=== PATIENT | female | born 1940 | race Caucasian/White ===

== ENCOUNTER 2019-12-02 11:25 | Emergency (ER) | payer MEDICARE, MEDICAID, SELFPAY ==
[2019-12-02 11:27] VITALS: BP 168/75; PULSE 82; RESP 16; TEMP 36.8; O2SAT 98; BMI 25.6
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
[2019-12-02 11:48] LABS: Basophils # 0.1 10^3/uL (0.0-0.1); Basophils % 0.6 %; Eosinophils # 0.4 10^3/uL (0.0-0.8); Eosinophils % 2.7 %; Hematocrit 34.4 % (37.0-47.0); Hemoglobin 10.9 g/dL (11.5-15.3); Lymphocytes # 2.7 10^3/uL (0.8-4.8); Lymphocytes % 20.7 %; Mean Corpuscular HGB Conc 31.7 g/dL (30.0-36.0); Mean Corpuscular Hemoglobin 29.3 pg (28.0-34.0); Mean Corpuscular Volume 92.5 fL (81-99); Mean Platelet Volume 10.6 fL (7.4-10.4); Monocytes # 1.1 10^3/uL (0.2-0.9); Monocytes % 8.3 %; Neutrophils # 8.8 10^3/uL (1.8-7.7); Neutrophils % 67.2 %; Nucleated Red Blood Cells % 0 %; Platelet Count 301 10^3/cmm (130-400); Red Blood Count 3.72 10^6/uL (4.1-5.3); Red Cell Distribution Width 14.3 % (12.1-15.1); White Blood Count 13.1 10^3/uL (4.0-10.0)
[2019-12-02 12:08] LABS: Acetaminophen < 5.0 ug/mL (10-30); Alanine Aminotransferase 21 U/L (0-33); Albumin Level 3.5 g/dL (3.5-5.2); Alcohol Level < 10 mg/dL (0-10); Alkaline Phosphatase 82 IU/L (35-105); Anion Gap 18.4 (5-19); Aspartate Amino Transferase 20 U/L (0-32); Blood Urea Nitrogen 30 mg/dL (8-23); Calcium 9.7 mg/dL (8.5-10.5); Carbon Dioxide 24 mmol/L (22-29); Chloride 102 mmol/L (98-107); Globulin 2.6 g/dL (1.3-4.6); Glucose 252 mg/dL (65-115); Osmolality Calculated 296 mOsm/kg (285-295); Potassium 4.4 mmol/L (3.5-5.1); Salicylate < 0.3 mg/dL (3-10); Sodium 140 mmol/L (136-145); Total Bilirubin 0.3 mg/dL (0.15-1.2); Total Protein 6.1 g/dL (6.6-8.7)
[2019-12-02 12:23] LABS: Urine Appearance Hazy (CLEAR); Urine Color Yellow (Yellow)
[2019-12-02 12:24] LABS: Add Urine Microscopic? YES; Bilirubin Urine Neg (NEGATIVE); Blood Urine Trace (Negative); Glucose Urine UA Norm (Normal); Ketones Urine Negative (Negative); Leukocyte Esterase Urine 2+ (Negative); Nitrate Urine Negative (Negative); Protein Urine 3+ (Negative); Specific Gravity, Urine 1.005 (1.005-1.030); Urobilinogen Urine Norm (Negative); pH Urine 7 (5-7)
[2019-12-02 12:25] LABS: Amphetamines Screen Urine Negative (Negative); Barbiturates Screen Urine Negative (Negative); Benzodiazepines Screen Urine Negative (Negative); Cocaine Screen Urine Negative (Negative); Opiate Screen Urine Positive (Negative); PCP Screen Urine Negative (Negative); THC Screen Urine Negative (Negative)
[2019-12-02 12:35] LABS: Add Urine Culture? Yes; Bacteria Urine 4+; RBC Urine 0-4 /hpf (0-2); Squamous Epithelial Cell Urine 0-4 (0-5); WBC Urine >100 /hpf (0-5)
[2019-12-02 12:42] VITALS: BP 171/77; PULSE 76; RESP 16; O2SAT 98
[2019-12-02] MEDS: cefTRIAXone 1,000 mg SDV 1000 MG IM (12:54)
[2019-12-02 13:01] VITALS: BP 171/77; PULSE 76; RESP 16; O2SAT 98
[2019-12-02 14:33] VITALS: BP 181/93; PULSE 81; RESP 16; O2SAT 98
[2019-12-02 15:08] VITALS: BP 130/86; PULSE 85; RESP 15; O2SAT 98
== END 2019-12-02 15:31 | disposition home or self-care (01) ==
PROVIDERS: Emergency Provider Emergency Medicine; Family Provider Family Medicine; PCP Family Medicine
DX: N30.00 Acute cystitis without hematuria (principal); G30.9 Alzheimer's disease, unspecified; F02.80 Dementia in other diseases classified elsewhere, unspecified severity, without behavioral disturbance, psychotic disturbance, mood disturbance, and anxiety; N18.9 Chronic kidney disease, unspecified; E11.9 Type 2 diabetes mellitus without complications; E78.5 Hyperlipidemia, unspecified; F17.200 Nicotine dependence, unspecified, uncomplicated; Z79.4 Long term (current) use of insulin; Z79.891 Long term (current) use of opiate analgesic
CPT/HCPCS: 12345; 36415; 80053; 80306; 80307; 81001; 85025; 87077; 87086; 87186; 96372; 99284; J0696

== ENCOUNTER 2020-03-13 17:29 | Emergency (ER) | payer MEDICARE, MEDICAID, SELFPAY ==
[2020-03-13 17:30] VITALS: BP 172/70; PULSE 73; RESP 18; TEMP 37.2; O2SAT 95; BMI 40.2
--- NOTE | 2020-03-13 18:16 | W.ED.GENADLT ---
HPI - General Adult General: Chief complaint: General Medical Stated complaint: FEEDING TUBE DISLODGED Time Seen by Provider: 03/13/20 17:43 History of Present Illness: HPI narrative: This patient is a 80-year-old female sent from [facility] intermediate due to her G-tube falling out. The patient said it came out accidentally and frightened her quite a bit. She says that the tube has been in place for several months. She had one in the past with a prior stroke in 2004. That was and was eventually removed but recently she had an episode of choking on chicken causing the G-tube to be placed again. She denies any other complaints at this time. She refuses to have me replace the G-tube. [facility] ED PFSH: Medical History Alzheimers disease Chronic kidney disease Depression Diabetes Dyskinesia of esophagus Dysphagia GERD (gastroesophageal reflux disease) Hyperlipidemia Family History Denies family history of Anesthesia complication Bleeding disorder Social History Smoking and tobacco status: current every day smoker Physical Exam Const: COMMON NORMALS: no acute distress, patient oriented x3, no limitations and alert GENERAL APPEARANCE: cooperative and comfortable HENMT: HEAD & SCALP: normal to inspection FACE & SINUS: normal facial exam Eye: GENERAL EYE: appearance normal, both eyes and all related structures Neck/C-Spine: COMMON NORMALS: supple, no meningeal signs and no JVD Chest: COMMONS NORMALS: normal inspection of the chest Resp: COMMON NORMALS: normal respiratory effort, No use of accessory muscles and clear to auscultation bilaterally AUSCULTATION: clear to auscultation bilaterally Cardio: COMMON NORMALS: no JVD, regular rate, regular rhythm and No murmurs present (Cardio) RATE: regular rate RHYTHM: regular rhythm GI: COMMON NORMALS: Normal to inspection, nondistended, normoactive bowel sounds present, Soft to palpation and non-tender INSPECTION: Yes normal to inspection AUSCULTATION: Yes normoactive bowel sounds PALPATION: Yes Soft to palpation Back/Pelvis: COMMON NORMALS: thoracic and lumbar spine normal to inspection Extremity: COMMON NORMALS: normal to inspection Neuro: COMMON NORMALS: patient oriented x3, moves all extremities, no focal motor deficits and no sensory deficits noted SENSORIUM/ORIENTATION: Yes alert MENINGEAL SIGNS: Yes no meningeal signs Psych: COMMON NORMALS: mental status grossly normal, cooperative and normal affect Skin: COMMON NORMALS: no rashes or lesions noted and turgor normal GENERAL SKIN EXAM: no rashes or lesions noted and turgor normal Course ED course: The patient is awake, alert. She has a reported history of Alzheimer's but for me she was oriented x3. She tells me that she is her own decision maker. I called and spoke with the nurse at the intermediate who confirmed that the patient is her own decision maker. I also spoke with her niece listed as her next of kin. She said she thought she might be her medical power of banking attorney but she really was not sure. She believes that the patient is her own decision maker. I had a long conversation both with the nurse and with the patient's niece regarding the G-tube. If the patient is her own decision maker and does not want the tube replaced I cannot do that. In spite of her history of Alzheimer's at this time she is alert and appears to be competent to make her own decision. She understands that the tube feedings are important for her nutritional status. The nurse at the intermediate told me that she had been refusing the tube feedings and that she is only been getting 2 a day if they are kavitha. She has been able to eat by mouth in the past few months but they have orders to give supplemental tube feedings if she does not eat enough calories. Her niece is concerned that the staff at the intermediate is not encouraging her enough to eat and is not forcing her to take the tube feeds. We discussed again that they are not able to force her to do anything against her will either. The patient's niece agreed that if the patient did not want the tube put in that I should not pursue it any further. The nurse at the intermediate is aware that she will be coming back without the tube. I discussed with the patient that it is very important she eats adequate amounts of nutrition. We also discussed that the tube either needs to be put back in now or will have to be surgically replaced in the future if she needs it again. I made sure that she understood that the hole would close quickly and that replacing it at the bedside tomorrow would not be possible. She seemed to understand all this and was able to repeat back to me. Definitely uncomfortable with this due to concerns that she may not get adequate nutrition but as she is apparently competent at this time and does not want the tube I am not going to put it in. Vital Signs: Vital signs: Vital Signs Temperature 99.0 F 03/13/20 17:30 Pulse Rate 70 03/13/20 20:00 Respiratory Rate 18 03/13/20 20:00 Blood Pressure 124/74 03/13/20 20:00 Pulse Oximetry 97 03/13/20 20:00 Discharge Plan Discharge Patient Disposition: Xfer Other Clinical Impression: Feeding tube dysfunction Qualifiers: Encounter type: initial encounter Qualified Code(s): T85.598A - Other mechanical complication of other gastrointestinal prosthetic devices, implants and grafts, initial encounter Condition: Stable Discharge Orders: Transfer Out of Facility (Order); Ordered 03/13/20 Ordered By: Alka Huffman Referrals: Pratibha Monique MD [Primary Care Provider] - Discharge Diet: Usual diet Discharge Activity: Resume usual activity Patient Instructions: Chronic Dysphagia (ED) Activity Restrictions/Additional Instructions: Encourage good nutritional intake. Discuss nutritional status with the doctor in charge of Ms. Means's care. Discharge Date/Time: 03/13/20 20:04 Coding Level of Care Code ED Semiconductor Technician for [employer] Fwd Exam Comprehensive
--- NOTE | 2020-03-13 18:30 | PC.NURSE ---
[facility] CALLED FOR PT'S RIDE BACK TO [facility]. PT TO RETURN VIA [facility]. CONFIRMATION #[id number].
--- NOTE | 2020-03-13 18:34 | PC.NURSE ---
ATTEMPT TO GIVE REPORT TO [facility] R/T PT'S RETURN. PHONE CALL UNANSWERED. WILL ATTEMPT AGAIN.
[2020-03-13 20:00] VITALS: BP 124/74; PULSE 70; RESP 18; O2SAT 97
== END 2020-03-13 20:04 | disposition other institution (70) ==
PROVIDERS: Emergency Provider Emergency Medicine; Family Provider Family Medicine; PCP Family Medicine
DX: T85.598A Other mechanical complication of other gastrointestinal prosthetic devices, implants and grafts, initial encounter (principal); G30.9 Alzheimer's disease, unspecified; F02.80 Dementia in other diseases classified elsewhere, unspecified severity, without behavioral disturbance, psychotic disturbance, mood disturbance, and anxiety; E11.9 Type 2 diabetes mellitus without complications; E78.5 Hyperlipidemia, unspecified; F17.210 Nicotine dependence, cigarettes, uncomplicated
CPT/HCPCS: 12345; 99281